=== PATIENT | female | born 1990 | race Caucasian/White ===

== ENCOUNTER → 2016-05-10 | Outpatient (CLI) | payer OTHER | LOC: MW.CHOBGYN 13:41 | PROVIDERS: ATTEND Nurse Practitioner Women's Health | DX: Z30.09 Encounter for other general counseling and advice on contraception (principal) | CPT/HCPCS: 87491; 87591 ==

== ENCOUNTER → 2016-06-25 | Outpatient (CLI) | payer OTHER | LOC: MW.CHOBGYN 15:27 | PROVIDERS: ATTEND Nurse Practitioner Women's Health | DX: Z30.09 Encounter for other general counseling and advice on contraception (principal) | CPT/HCPCS: 81025 ==

== ENCOUNTER 2018-06-18 03:28 | Emergency (ER) | payer BC ==
--- NOTE | 2018-06-18 04:06 | CR ---
INDICATION: Throat neck pain TECHNIQUE: Neck soft tissue radiograph 2 views COMPARISON: None FINDINGS: Soft tissue: The retropharyngeal soft tissues are unremarkable. The epiglottis and airway are normal in appearance. No radiopaque foreign bodies are seen. Bone: No acute fractures or aggressive bone lesions are identified. Straightening in the cervical spine is noted. Disc: The disc spaces are unremarkable in appearance. The facet joints are unremarkable. IMPRESSION: 1. The soft tissues of the neck are unremarkable in appearance. Dictated by Augie Teran MD @ 06/18/2018 4:05:51 AM Dictated by: Augie Teran MD @ 06/18/2018 04:05:55 (Electronically Signed)
[2018-06-18] MEDS ORDERED: Penicillin G Benzathine 1,200,000 Units/2 ML Syringe IM ONE ×2 (04:28→04:45)
--- NOTE | 2018-06-18 04:32 | EDM.PDOC ---
ED HPI GENERAL MEDICAL PROBLEM - General Chief Complaint: ENT Problem Stated Complaint: JAW PAIN- LEFT SIDE; TONSILS Time Seen by Provider: 06/18/18 04:30 - History of Present Illness INITIAL COMMENTS - FREE TEXT/NARRATIVE: HISTORY AND PHYSICAL: History of present illness: Patient is 28-year-old white female presents with a concern of sore throat Review of systems: As per history of present illness and below otherwise all systems reviewed and negative. Past medical history: As per history of present illness and as reviewed below otherwise noncontributory. Surgical history: As per history of present illness and as reviewed below otherwise noncontributory. Social history: No reported history of drug or alcohol abuse. Family history: As per history of present illness and as reviewed below otherwise noncontributory. Physical exam: HEENT: Atraumatic, normocephalic, pupils reactive, negative for conjunctival pallor or scleral icterus, mucous membranes moist, throat injected with scant exudates no peritonsillar fullness uvular deviation trismus or hot potato voice , neck supple, nontender, trachea midline. Lungs: Clear to auscultation, breath sounds equal bilaterally, chest nontender. Heart: S1S2, regular, negative for clicks, rubs, or JVD. Abdomen: Soft, nondistended, nontender. Negative for masses or hepatosplenomegaly. Negative for costovertebral tenderness. Pelvis: Stable nontender. Genitourinary: Deferred. Rectal: Deferred. Extremities: Atraumatic, negative for cords or calf pain. Neurovascular unremarkable. Neuro: Awake, alert, oriented. Cranial nerves II through XII unremarkable. Cerebellum unremarkable. Motor and sensory unremarkable throughout. Exam nonfocal. Diagnostics: Rapid strep soft tissue neck CBC Monospot Therapeutics: Bicillin L-A 1.2 million units Impression: Streptococcal pharyngitis Definitive disposition and diagnosis as appropriate pending reevaluation and review of above. throat Pain Score (Numeric/FACES): 2 - Related Data Allergies Allergy/AdvReac Type Severity Reaction Status Date / Time No Known Allergies Allergy Verified 06/18/18 03:32 Home Meds: Home Meds . [No Known Home Meds] 06/18/18 [History] Past Medical History - Past Health History Medical/Surgical History: Denies Medical/Surgical History Social & Family History - Family History Family Medical History: Noncontributory - Tobacco Use Smoking Status *Q: Never Smoker - Recreational Drug Use Recreational Drug Use: No ED ROS GENERAL - Review of Systems Review Of Systems: ROS reveals no pertinent complaints other than HPI. ED EXAM, GENERAL - Physical Exam Exam: See Below (See dictation) Course - Vital Signs Last Recorded V/S: Last Vital Signs Temp 36.5 C 06/18/18 03:30 Pulse 104 H 06/18/18 03:30 Resp 18 06/18/18 03:30 BP 143/81 H 06/18/18 03:30 Pulse Ox 97 06/18/18 03:30 - Orders/Labs/Meds Labs: Laboratory Tests 06/18/18 06/18/18 Range/Units 03:49 03:49 WBC 12.41 H (4.0-11.0) K/uL RBC 4.35 (4.30-5.90) M/uL Hgb 13.1 (12.0-16.0) g/dL Hct 39.2 (36.0-46.0) % MCV 90.1 (80.0-98.0) fL MCH 30.1 (27.0-32.0) pg MCHC 33.4 (31.0-37.0) g/dL RDW Std Deviation 43.0 (28.0-62.0) fl RDW Coeff of Maddison 13 (11.0-15.0) % Plt Count 239 (150-400) K/uL MPV 9.70 (7.40-12.00) fL Neut % (Auto) 65.2 (48.0-80.0) % Lymph % (Auto) 25.4 (16.0-40.0) % Bleckley % (Auto) 8.2 (0.0-15.0) % Eos % (Auto) 1.0 (0.0-7.0) % Baso % (Auto) 0.2 (0.0-1.5) % Neut # (Auto) 8.1 H (1.4-5.7) K/uL Lymph # (Auto) 3.2 H (0.6-2.4) K/uL Bleckley # (Auto) 1.0 H (0.0-0.8) K/uL Eos # (Auto) 0.1 (0.0-0.7) K/uL Baso # (Auto) 0.0 (0.0-0.1) K/uL Nucleated RBC % 0.0 /100WBC Nucleated RBCs # 0 K/uL Monoscreen NEGATIVE (NEG) Meds: Medications Discontinued Medications Generic Name Dose Route Start Last Admin Trade Name Felicia PRN Reason Stop Dose Admin Penicillin G Benzathine 1.2 millunits 06/18/18 04:28 Bicillin L-A IM 06/18/18 04:29 ONETIME ONE Departure - Departure Time of Disposition: :31 Disposition: Home, Self-Care 01 Condition: Good Clinical Impression: Streptococcal pharyngitis - Discharge Information Referrals: PCP,None [Primary Care Provider] - Additional Instructions: The following information is given to patients seen in the emergency department who are being discharged to home. This information is to outline your options for follow-up care. We provide all patients seen in our emergency department with a follow-up referral. The need for follow-up, as well as the timing and circumstances, are variable depending upon the specifics of your emergency department visit. If you don't have a primary care physician on staff, we will provide you with a referral. We always advise you to contact your personal physician following an emergency department visit to inform them of the circumstance of the visit and for follow-up with them and/or the need for any referrals to a consulting specialist. The emergency department will also refer you to a specialist when appropriate. This referral assures that you have the opportunity for followup care with a specialist. All of these measure are taken in an effort to provide you with optimal care, which includes your followup. Under all circumstances we always encourage you to contact your private physician who remains a resource for coordinating your care. When calling for followup care, please make the office aware that this follow-up is from your recent emergency room visit. If for any reason you are refused follow-up, please contact the [facility] emergency department at and asked to speak to the emergency department charge nurse. Jeremy/Gabrielle hoover to follow primary medical doctor return as needed as discussed
[2018-06-18 05:18] VITALS: BP 100/62
== END 2018-06-18 05:15 | disposition home or self-care (01) ==
LOC: MW.ED 03:28
DX: J02.0 Streptococcal pharyngitis (principal)
CPT/HCPCS: 36415; 70360; 85025; 86308; 87880; 96372; 99284; J0561; 99283